=== PATIENT | male | born 1940 | race Caucasian/White ===

== ENCOUNTER → 2021-11-01 | Outpatient (CLI) | payer MEDICARE | END | disposition home or self-care (01) | LOC: WCC 08:20 | DX: S91.102A Unspecified open wound of left great toe without damage to nail, initial encounter (principal); C61 Malignant neoplasm of prostate; Z88.0 Allergy status to penicillin; Z87.891 Personal history of nicotine dependence; Z79.899 Other long term (current) drug therapy; X58.XXXA Exposure to other specified factors, initial encounter | CPT/HCPCS: 87070; 87077; 87186; 87205 ==

== ENCOUNTER → 2021-11-08 | Outpatient (CLI) | payer MEDICARE | END | disposition home or self-care (01) | LOC: WCC 07:25 | DX: S91.102A Unspecified open wound of left great toe without damage to nail, initial encounter (principal); M79.675 Pain in left toe(s); C61 Malignant neoplasm of prostate; X58.XXXA Exposure to other specified factors, initial encounter ==

== ENCOUNTER → 2021-11-15 | Outpatient (CLI) | payer MEDICARE | LOC: KOH-I 09:44 | DX: L97.522 Non-pressure chronic ulcer of other part of left foot with fat layer exposed (principal); R60.0 Localized edema | CPT/HCPCS: 73718 ==

== ENCOUNTER → 2021-11-15 | Outpatient (CLI) | payer MEDICARE | LOC: WCC 07:22 | DX: S91.102A Unspecified open wound of left great toe without damage to nail, initial encounter (principal); C61 Malignant neoplasm of prostate; X58.XXXA Exposure to other specified factors, initial encounter; Z88.0 Allergy status to penicillin; Z92.21 Personal history of antineoplastic chemotherapy ==

== ENCOUNTER → 2021-11-22 | Outpatient (CLI) | payer MEDICARE | LOC: WCC 07:35 | DX: S91.102A Unspecified open wound of left great toe without damage to nail, initial encounter (principal); C61 Malignant neoplasm of prostate; L97.522 Non-pressure chronic ulcer of other part of left foot with fat layer exposed; M79.675 Pain in left toe(s); M86.079 Acute hematogenous osteomyelitis, unspecified ankle and foot; X58.XXXA Exposure to other specified factors, initial encounter; Z88.0 Allergy status to penicillin; Z92.21 Personal history of antineoplastic chemotherapy | CPT/HCPCS: 87070; 87205 ==

== ENCOUNTER → 2021-11-29 | Outpatient (CLI) | payer MEDICARE ==
[2021-11-29 12:27] LABS: HEMOGLOBIN 12.5 gm/dl (14.0-17.5); RED BLOOD COUNT 3.63 M/UL (4.20-5.50); WHITE BLOOD COUNT 5.7 K/UL (4.5-11.0)
[2021-11-29 12:46] LABS: BUN/CREATININE RATIO 18 (0-10)
== END ==
LOC: LAB 11:53
PROVIDERS: Nurse Practitioner Family
DX: M86.079 Acute hematogenous osteomyelitis, unspecified ankle and foot (principal); L97.522 Non-pressure chronic ulcer of other part of left foot with fat layer exposed
CPT/HCPCS: 36415; 80053; 85027; 85652; 86140; C1751

== ENCOUNTER → 2021-12-06 | Outpatient (CLI) | payer MEDICARE, OTHER | LOC: WCC 07:26 | DX: L97.522 Non-pressure chronic ulcer of other part of left foot with fat layer exposed (principal); Z88.0 Allergy status to penicillin; C61 Malignant neoplasm of prostate; M79.675 Pain in left toe(s); M86.079 Acute hematogenous osteomyelitis, unspecified ankle and foot; B49 Unspecified mycosis; Z79.2 Long term (current) use of antibiotics ==

== ENCOUNTER → 2021-12-06 | Outpatient (CLI) | payer MEDICARE, OTHER ==
[2021-12-06 09:45] LABS: BUN/CREATININE RATIO 22 (0-10)
[2021-12-06 09:52] LABS: HEMOGLOBIN 12.4 gm/dl (14.0-17.5); RED BLOOD COUNT 3.64 M/UL (4.20-5.50); WHITE BLOOD COUNT 4.9 K/UL (4.5-11.0)
== END ==
LOC: OPSV 08:54
PROVIDERS: Nurse Practitioner Family
DX: M86.079 Acute hematogenous osteomyelitis, unspecified ankle and foot (principal); M79.675 Pain in left toe(s); L97.522 Non-pressure chronic ulcer of other part of left foot with fat layer exposed
CPT/HCPCS: 80053; 85027; 85652; 86140

== ENCOUNTER → 2021-12-13 | Outpatient (CLI) | payer MEDICARE, OTHER | LOC: WCC 07:17 | DX: S91.102A Unspecified open wound of left great toe without damage to nail, initial encounter (principal); C61 Malignant neoplasm of prostate; L97.522 Non-pressure chronic ulcer of other part of left foot with fat layer exposed; M86.079 Acute hematogenous osteomyelitis, unspecified ankle and foot; X58.XXXA Exposure to other specified factors, initial encounter; Z95.828 Presence of other vascular implants and grafts; Z88.0 Allergy status to penicillin; Z92.21 Personal history of antineoplastic chemotherapy ==

== ENCOUNTER → 2021-12-20 | Outpatient (CLI) | payer MEDICARE, OTHER ==
[2021-12-20 08:18] LABS: HEMOGLOBIN 12.4 gm/dl (14.0-17.5); RED BLOOD COUNT 3.64 M/UL (4.20-5.50); WHITE BLOOD COUNT 4.5 K/UL (4.5-11.0)
[2021-12-20 09:47] LABS: BUN/CREATININE RATIO 23 (0-10)
== END ==
LOC: OPSV 07:24
PROVIDERS: Nurse Practitioner Family
DX: M86.079 Acute hematogenous osteomyelitis, unspecified ankle and foot (principal); L97.522 Non-pressure chronic ulcer of other part of left foot with fat layer exposed
CPT/HCPCS: 80053; 85027; 85652; 86140

== ENCOUNTER → 2021-12-27 | Outpatient (CLI) | payer MEDICARE, OTHER ==
[2021-12-27 08:31] LABS: HEMOGLOBIN 12.1 gm/dl (14.0-17.5); RED BLOOD COUNT 3.56 M/UL (4.20-5.50)
[2021-12-27 08:56] LABS: BUN/CREATININE RATIO 26 (0-10)
== END | disposition home or self-care (01) ==
LOC: OPSV 07:39
PROVIDERS: Nurse Practitioner Family
DX: M86.079 Acute hematogenous osteomyelitis, unspecified ankle and foot (principal); M79.675 Pain in left toe(s); L97.522 Non-pressure chronic ulcer of other part of left foot with fat layer exposed
CPT/HCPCS: 80053; 85027; 85652; 86140

== ENCOUNTER → 2021-12-27 | Outpatient (CLI) | payer MEDICARE, OTHER | LOC: WCC 07:10 | DX: S91.102A Unspecified open wound of left great toe without damage to nail, initial encounter (principal); C61 Malignant neoplasm of prostate; M86.079 Acute hematogenous osteomyelitis, unspecified ankle and foot; X58.XXXA Exposure to other specified factors, initial encounter; Z88.0 Allergy status to penicillin; Z92.21 Personal history of antineoplastic chemotherapy ==

== ENCOUNTER → 2022-01-03 | Outpatient (CLI) | payer MEDICARE, OTHER ==
[2022-01-03 07:45] LABS: HEMOGLOBIN 12.2 gm/dl (14.0-17.5); RED BLOOD COUNT 3.56 M/UL (4.20-5.50); WHITE BLOOD COUNT 4.7 K/UL (4.5-11.0)
[2022-01-03 08:22] LABS: BUN/CREATININE RATIO 24 (0-10)
== END | disposition home or self-care (01) ==
LOC: OPSV 07:19
PROVIDERS: Nurse Practitioner Family
DX: M86.079 Acute hematogenous osteomyelitis, unspecified ankle and foot (principal); L97.522 Non-pressure chronic ulcer of other part of left foot with fat layer exposed; M79.675 Pain in left toe(s)
CPT/HCPCS: 80053; 85027; 85652; 86140

== ENCOUNTER → 2022-01-03 | Outpatient (CLI) | payer MEDICARE, OTHER | END | disposition home or self-care (01) | LOC: WCC 07:13 | DX: S91.102A Unspecified open wound of left great toe without damage to nail, initial encounter (principal); M86.079 Acute hematogenous osteomyelitis, unspecified ankle and foot; C61 Malignant neoplasm of prostate; Z79.811 Long term (current) use of aromatase inhibitors; Z79.899 Other long term (current) drug therapy; X58.XXXA Exposure to other specified factors, initial encounter ==

== ENCOUNTER → 2022-01-10 | Outpatient (CLI) | payer MEDICARE, OTHER ==
[2022-01-10 09:00] LABS: RED BLOOD COUNT 4.41 M/UL (4.20-5.50); WHITE BLOOD COUNT 3.4 K/UL (4.5-11.0)
[2022-01-10 09:30] LABS: BUN/CREATININE RATIO 24 (0-10)
== END | disposition home or self-care (01) ==
LOC: OPSV 07:28
PROVIDERS: Nurse Practitioner Family
DX: M86.079 Acute hematogenous osteomyelitis, unspecified ankle and foot (principal); M79.675 Pain in left toe(s); L97.522 Non-pressure chronic ulcer of other part of left foot with fat layer exposed
CPT/HCPCS: 80053; 85027; 85652; 86140

== ENCOUNTER → 2022-01-10 | Outpatient (CLI) | payer MEDICARE, OTHER | LOC: WCC 07:01 | DX: B35.3 Tinea pedis (principal); L97.522 Non-pressure chronic ulcer of other part of left foot with fat layer exposed; C61 Malignant neoplasm of prostate; M79.675 Pain in left toe(s); M86.079 Acute hematogenous osteomyelitis, unspecified ankle and foot; Z88.0 Allergy status to penicillin; Z79.899 Other long term (current) drug therapy ==

== ENCOUNTER → 2022-01-17 | Outpatient (CLI) | payer MEDICARE, OTHER ==
[2022-01-17 07:37] LABS: RED BLOOD COUNT 3.57 M/UL (4.20-5.50); WHITE BLOOD COUNT 4.9 K/UL (4.5-11.0)
[2022-01-17 07:39] LABS: HEMOGLOBIN 11.8 gm/dl (14.0-17.5)
[2022-01-17 08:23] LABS: BUN/CREATININE RATIO 25 (0-10)
== END ==
LOC: OPSV 07:10
PROVIDERS: Nurse Practitioner Family
DX: M86.079 Acute hematogenous osteomyelitis, unspecified ankle and foot (principal); L97.522 Non-pressure chronic ulcer of other part of left foot with fat layer exposed
CPT/HCPCS: 80053; 85027; 85652; 86140

== ENCOUNTER → 2022-01-17 | Outpatient (CLI) | payer MEDICARE, OTHER | LOC: WCC 07:23 | DX: S91.102A Unspecified open wound of left great toe without damage to nail, initial encounter (principal); C61 Malignant neoplasm of prostate; M86.079 Acute hematogenous osteomyelitis, unspecified ankle and foot; Z88.0 Allergy status to penicillin; Z92.21 Personal history of antineoplastic chemotherapy; X58.XXXA Exposure to other specified factors, initial encounter ==

== ENCOUNTER → 2022-01-31 | Outpatient (CLI) | payer MEDICARE, OTHER | LOC: WCC 07:24 | DX: L97.522 Non-pressure chronic ulcer of other part of left foot with fat layer exposed (principal); B49 Unspecified mycosis; C61 Malignant neoplasm of prostate; M79.675 Pain in left toe(s); M86.079 Acute hematogenous osteomyelitis, unspecified ankle and foot; Z88.0 Allergy status to penicillin; Z79.899 Other long term (current) drug therapy ==

== ENCOUNTER → 2022-02-13 | Outpatient (CLI) | payer MEDICARE, OTHER | LOC: WCC 07:02 | DX: L97.522 Non-pressure chronic ulcer of other part of left foot with fat layer exposed (principal); C61 Malignant neoplasm of prostate; M79.675 Pain in left toe(s); M86.079 Acute hematogenous osteomyelitis, unspecified ankle and foot; Z88.0 Allergy status to penicillin; Z79.899 Other long term (current) drug therapy ==